=== PATIENT | female | born 1970 ===

== ENCOUNTER 2021-03-13 11:35 | Emergency (ER) | payer SELFPAY ==
[~2021-03-13] VITALS: Ht 160 cm; Wt 70.5 kg
[2021-03-13 11:40] VITALS: BP 162/90
== END 2021-03-13 14:00 | disposition left against medical advice (07) ==
LOC: EMS 11:35
DX: M79.602 Pain in left arm (principal); Z53.21 Procedure and treatment not carried out due to patient leaving prior to being seen by health care provider